=== PATIENT | male | born 1965 | race Caucasian/White ===

== ENCOUNTER → 2019-12-24 11:20 | Outpatient (BNVA) | payer BC, SELFPAY | PROVIDERS: PCP Family Medicine; Visit Provider Internal Medicine Rheumatology | DX: M05.79 Rheumatoid arthritis with rheumatoid factor of multiple sites without organ or systems involvement (principal); Z11.59 Encounter for screening for other viral diseases; Z79.899 Other long term (current) drug therapy; Z11.1 Encounter for screening for respiratory tuberculosis; R74.0 Nonspecific elevation of levels of transaminase and lactic acid dehydrogenase [LDH] | CPT/HCPCS: 36415; 99204 ==

== ENCOUNTER 2019-12-24 13:32 | Outpatient (CLI) | payer BC, SELFPAY ==
--- NOTE | 2019-12-24 13:40 | XR_ITS ---
WS: [id number] PROCEDURE: XR chest 2V* [id number] CLINICAL INFORMATION: joint pain COMPARISON: None. FINDINGS: Heart: Normal cardiac silhouette. Lungs: Lungs are clear. No consolidation or pleural fluid. Moderate chronic emphysematous changes. No acute infiltrates. Bones: Normal visualized bony structures. XR/XR chest 2V* [id number] IMPRESSION: No acute chest findings.
--- NOTE | 2019-12-24 13:40 | XR_ITS ---
WS: [id number] HAND RIGHT TECHNIQUE: 3 views of the right hand CLINICAL INFORMATION: joint pain COMPARISON: None. FINDINGS: Normal metacarpals. Normal MCP joint. Metacarpal heads are normal in appearance. Normal PIP and DIP j oints. No evidence of acute fracture or dislocation. Radiocarpal joint: Normal. Carpal bones: Normal. XR/XR hand RT min 3V* [id number] IMPRESSION: Normal right hand.
--- NOTE | 2019-12-24 13:40 | XR_ITS ---
WS: [id number] CERVICAL SPINE TECHNIQUE: 3 views of the cervical spine CLINICAL INFORMATION: rheumatoid arthritis COMPARISON: None. FINDINGS: Straightening of the normal cervical lordosis with slight retrolisthesis C3 on C4. Mild spondylitic c hanges. Disc space narrowing worse at C6-7. Normal C1-articulation. Chronic anterior wedging in the u pper thoracic spine. Moderate facet arthropathy in the mid cervical spine. XR/XR cervical spine 3V* [id number] IMPRESSION: Moderate spondylitic changes cervical spine.
--- NOTE | 2019-12-24 13:40 | XR_ITS ---
WS: [id number] FOOT LEFT TECHNIQUE: 3 views of the left foot CLINICAL INFORMATION: joint pain COMPARISON: None. FINDINGS: Lucency involving the fourth middle phalanx consistent with a nondisplaced fracture. Recommend correl ation with recent trauma or pain in this area. This may be due to chronic fracture. Normal tarsal met atarsal alignment. Normal calcaneus. Normal visualized talar dome. No erosive changes. XR/XR foot LT min 3V* [id number] IMPRESSION: 1. No erosive changes. 2. Nondisplaced fracture involving the fourth middle phalanx may be chronic. R ecommend correlation with recent injury.
--- NOTE | 2019-12-24 13:40 | XR_ITS ---
WS: [id number] HAND LEFT TECHNIQUE: 3 views of the left hand CLINICAL INFORMATION: joint pain COMPARISON: None. FINDINGS: Normal metacarpals. Normal MCP joint. Metacarpal heads are normal in appearance. Normal PIP and DIP j oints. No evidence of acute fracture or dislocation. Radiocarpal joint: Normal. Carpal bones: Normal. XR/XR hand LT min 3V* [id number] IMPRESSION: Normal left hand.
--- NOTE | 2019-12-24 13:40 | XR_ITS ---
WS: [id number] FOOT RIGHT TECHNIQUE: 3 views of the right foot CLINICAL INFORMATION: joint pain COMPARISON: None. FINDINGS: No evidence of acute fracture or dislocation. Normal tarsal metatarsal alignment. Normal calcaneus. N ormal visualized talar dome. Prior postoperative changes plate and screw fixation distal fibula and l ateral malleolus. XR/XR foot RT min 3V* [id number] IMPRESSION: No erosive changes.
== END 2019-12-24 13:33 | disposition home or self-care (01) ==
LOC: RADWPI 13:37
PROVIDERS: PCP Family Medicine; Visit Provider Internal Medicine Rheumatology
DX: M05.9 Rheumatoid arthritis with rheumatoid factor, unspecified (principal); M25.50 Pain in unspecified joint; S92.912A Unspecified fracture of left toe(s), initial encounter for closed fracture; X58.XXXA Exposure to other specified factors, initial encounter
CPT/HCPCS: 71046; 72040; 73130; 73630; 82306; 85651; 86140; 86480; 86704; 86803; 87340

== ENCOUNTER → 2020-03-16 14:03 | Outpatient (BNVA) | payer BC, SELFPAY | PROVIDERS: PCP Family Medicine; Visit Provider Internal Medicine Rheumatology | DX: M05.79 Rheumatoid arthritis with rheumatoid factor of multiple sites without organ or systems involvement (principal); Z79.899 Other long term (current) drug therapy; R74.01 Elevation of levels of liver transaminase levels | CPT/HCPCS: 99214 ==

== ENCOUNTER → 2020-06-22 10:29 | Outpatient (BNVA) | payer BC, SELFPAY | PROVIDERS: PCP Family Medicine; Visit Provider Internal Medicine Rheumatology | DX: M05.79 Rheumatoid arthritis with rheumatoid factor of multiple sites without organ or systems involvement (principal); Z79.899 Other long term (current) drug therapy; Z87.891 Personal history of nicotine dependence; R74.01 Elevation of levels of liver transaminase levels | CPT/HCPCS: 99214 ==

== ENCOUNTER → 2020-09-28 10:59 | Outpatient (BNVA) | payer BC, SELFPAY | PROVIDERS: PCP Family Medicine; Visit Provider Internal Medicine Rheumatology | DX: M05.79 Rheumatoid arthritis with rheumatoid factor of multiple sites without organ or systems involvement (principal); Z79.899 Other long term (current) drug therapy; R74.01 Elevation of levels of liver transaminase levels; Z87.891 Personal history of nicotine dependence | CPT/HCPCS: 99214 ==

== ENCOUNTER → 2021-01-26 12:45 | Outpatient (BNVA) | payer BC, SELFPAY | PROVIDERS: PCP Family Medicine; Visit Provider Internal Medicine Rheumatology | DX: M05.79 Rheumatoid arthritis with rheumatoid factor of multiple sites without organ or systems involvement (principal); Z79.899 Other long term (current) drug therapy; R74.01 Elevation of levels of liver transaminase levels; Z72.89 Other problems related to lifestyle; Z86.718 Personal history of other venous thrombosis and embolism; Z71.89 Other specified counseling; Z87.891 Personal history of nicotine dependence | CPT/HCPCS: 99214 ==

== ENCOUNTER → 2023-06-15 11:03 | Outpatient (BNVA) | payer MEDICARE, SELFPAY | PROVIDERS: PCP Physician Assistant; Visit Provider Internal Medicine Rheumatology | DX: M05.79 Rheumatoid arthritis with rheumatoid factor of multiple sites without organ or systems involvement (principal); Z79.899 Other long term (current) drug therapy; Z71.89 Other specified counseling; R91.1 Solitary pulmonary nodule; M71.332 Other bursal cyst, left wrist | CPT/HCPCS: 99214 ==

== ENCOUNTER 2023-06-29 10:11 | Outpatient (CLI) | payer MEDICARE, SELFPAY ==
--- NOTE | 2023-06-29 10:30 | US_ITS ---
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 Liver: 16.0 cm in length. Coarse echotexture. No mass. Portal Vein: Normal hepatopetal flow with monophasic waveform. Gallbladder: Normally distended gallbladder with no stones or wall thickening. CBD: Not imaged. No evidence for intrahepatic bile duct dilatation. Pancreas: Mildly echogenic pancreas. The head and tail are not well visualized. Right kidney: 11.0 cm in length. Normal size and echogenicity. No hydronephrosis or mass. Aorta and IVC: Unremarkable abdominal aorta and IVC. No ascites. IMPRESSION: 1. Mild hepatic steatosis. No mass or bile duct dilatation. 2. Normal RIGHT kidney.
--- NOTE | 2023-06-29 11:00 | US_ITS ---
WS: [id number] INDICATION: Ultrasound soft tissue wrist LEFT. Bursal cyst. TECHNIQUE: Ultrasound soft tissue LEFT wrist FINDINGS: Ultrasound area of concern LEFT wrist. In the area of interest, LEFT anterolateral wrist, n ormal underlying subcutaneous soft tissues. No cystic or solid lesions. No fluid collections. No susp icious findings in the area of concern. IMPRESSION: No suspicious cystic or solid lesions in the area of concern
== END 2023-06-29 10:12 | disposition home or self-care (01) ==
LOC: RAD 10:11
PROVIDERS: PCP Physician Assistant; Visit Provider Internal Medicine Rheumatology
DX: M00-M99 Diseases of the musculoskeletal system and connective tissue (principal); Z79.899 Other long term (current) drug therapy; R79.89 Other specified abnormal findings of blood chemistry; K76.0 Fatty (change of) liver, not elsewhere classified
CPT/HCPCS: 76705; 76882

== ENCOUNTER → 2023-09-21 10:34 | Outpatient (BNVA) | payer MEDICARE, SELFPAY | PROVIDERS: PCP Physician Assistant; Visit Provider Internal Medicine Rheumatology | DX: Z79.899 Other long term (current) drug therapy (principal); M05.79 Rheumatoid arthritis with rheumatoid factor of multiple sites without organ or systems involvement; Z71.89 Other specified counseling; R91.1 Solitary pulmonary nodule | CPT/HCPCS: 99214 ==

== ENCOUNTER → 2024-03-28 12:48 | Outpatient (BNVA) | payer MEDICARE, SELFPAY | PROVIDERS: PCP Physician Assistant; Visit Provider Internal Medicine Rheumatology | DX: M05.79 Rheumatoid arthritis with rheumatoid factor of multiple sites without organ or systems involvement (principal); Z71.89 Other specified counseling; Z79.899 Other long term (current) drug therapy; R91.1 Solitary pulmonary nodule | CPT/HCPCS: 99214 ==

== ENCOUNTER → 2024-08-20 09:03 | Outpatient (BNVA) | payer MEDICARE, SELFPAY | PROVIDERS: PCP Physician Assistant; Visit Provider Internal Medicine Rheumatology | DX: M05.79 Rheumatoid arthritis with rheumatoid factor of multiple sites without organ or systems involvement (principal); Z71.89 Other specified counseling; Z79.899 Other long term (current) drug therapy; R91.1 Solitary pulmonary nodule | CPT/HCPCS: 99214 ==

== ENCOUNTER → 2024-12-18 09:22 | Outpatient (BNVA) | payer MEDICARE, SELFPAY | PROVIDERS: PCP Physician Assistant; Visit Provider Internal Medicine Rheumatology | DX: M05.79 Rheumatoid arthritis with rheumatoid factor of multiple sites without organ or systems involvement (principal); Z71.85 Encounter for immunization safety counseling; Z79.899 Other long term (current) drug therapy; R91.1 Solitary pulmonary nodule | CPT/HCPCS: 99214 ==

== ENCOUNTER → 2025-04-28 13:30 | Outpatient (BNVA) | payer MEDICARE, SELFPAY | PROVIDERS: PCP Physician Assistant; Visit Provider Internal Medicine Rheumatology | DX: M05.79 Rheumatoid arthritis with rheumatoid factor of multiple sites without organ or systems involvement (principal); Z79.899 Other long term (current) drug therapy; Z71.85 Encounter for immunization safety counseling; R91.1 Solitary pulmonary nodule; R74.01 Elevation of levels of liver transaminase levels; Z86.718 Personal history of other venous thrombosis and embolism; Z85.118 Personal history of other malignant neoplasm of bronchus and lung | CPT/HCPCS: 99214 ==